=== PATIENT | male | born 1970 | race Hispanic/Latino ===

== ENCOUNTER → 2021-01-06 | Day surgery (SDC) | payer BC ==
[~2021-01-06] MED LIST: HYOSCYAMINE SULFATE 0.5 MG/ML INJ ONE; LIDOCAINE HCL 2% LOCAL INJ 5 ML SDV VIAL INJ ONE; LOSARTAN POTASS25 MG PO; PROPOFOL IV EMULSION 10 MG/ML 20 ML VIAL ONE; TESTOSTERO100 MG/1 M INJ
[2021-01-06 10:10] VITALS: BP 119/75
== END | disposition home or self-care (01) ==
LOC: OR 08:02
PROVIDERS: ATTEND Internal Medicine Gastroenterology
DX: Z12.11 Encounter for screening for malignant neoplasm of colon (principal); K52.9 Noninfective gastroenteritis and colitis, unspecified; K62.89 Other specified diseases of anus and rectum; K64.8 Other hemorrhoids; K21.9 Gastro-esophageal reflux disease without esophagitis; I10 Essential (primary) hypertension; Z01.810 Encounter for preprocedural cardiovascular examination; Z01.812 Encounter for preprocedural laboratory examination; Z20.822 Contact with and (suspected) exposure to COVID-19
CPT/HCPCS: 45380; 93005; J1980; J2001; J2704; U0002